=== PATIENT | male | born 1980 | race Caucasian/White ===

== ENCOUNTER 2023-06-06 09:23 | Emergency (ER) | payer MEDICAID ==
[~2023-06-06] VITALS: Ht 175.3 cm; Wt 79.0 kg
[2023-06-06 09:32] VITALS: O2SAT 97
[2023-06-06] MEDS ORDERED: IBUPROFEN 600MG TABLET PO ONE (09:45)
[2023-06-06] MEDS ORDERED: TETANUS, DIPHTHERIA, PERTUSSIS VAC/PF 0.5ML (>10YR OLD) IM ONE (09:45)
[2023-06-06] MEDS ORDERED: BO1 TP (09:57)
[2023-06-06] MEDS ORDERED: IBUP-2029 MT (09:58)
[2023-06-06 10:23] VITALS: BP 124/78; PULSE 63; RESP 20; TEMP 98.4
== END 2023-06-06 10:25 | disposition home or self-care (01) ==
LOC: ER 10:13
DX: S60.321A Blister (nonthermal) of right thumb, initial encounter (principal); X58.XXXA Exposure to other specified factors, initial encounter; Y93.89 Activity, other specified; Y92.89 Other specified places as the place of occurrence of the external cause; Y99.8 Other external cause status
CPT/HCPCS: 90715; 90471; 99283; Z7610